=== PATIENT | male | born 1930 | race Caucasian/White ===

== ENCOUNTER 2017-12-15 13:48 | Inpatient (IN) | payer MEDICARE ==
[~2017-12-15] VITALS: Ht 177.8 cm; Wt 93.6 kg
[2017-12-15] MEDS ORDERED: SODIUM CHLORIDE 0.9% 1000ML 1,000 ML IV ONE (16:30)
--- NOTE | 2017-12-15 17:10 | Diagnostic Imaging Report ---
Exam: Head CT without contrast History: Difficulty walking,? CVA. Comparison studies: None Technique: Axial images were obtained from the skull base to the vertex. Coronal and sagittal images reconstructed from the axial data. Intravenous contrast: None Findings: Scalp: Incidental small right scalp lipoma. No additional abnormalities. Bones: No fractures, blastic or lytic lesions. Brain sulci: Mildly prominent. Ventricles: Moderately dilated, disproportionate to sulcal size. Communicating hydrocephalus could have this appearance. Consider normal pressure hydrocephalus (NPH) in the appropriate clinical setting. No hydrocephalus. Extra-axial spaces: No masses, no fluid collection. Parenchyma: No mass, acute hemorrhage or acute or chronic cortical vascular insults. Confluent hypodensity in the supratentorial white matter is nonspecific but most compatible with chronic small vessel ischemic changes. Periventricular hypodensity could reflect transependymal flow of CSF related to hydrocephalus or chronic small vessel ischemic changes. There is a chronic lacunar insult in the left subinsular region as well as small chronic lacunar infarct in the right putamen. Sellar/suprasellar region: No abnormalities. Craniocervical junction: Patent foramen magnum. No Chiari one malformation. Incidental findings: Atherosclerotic calcifications in the carotid siphons and intradural vertebral arteries. Left globe prosthesis and implant in place. Right intraocular lens replacement related to previous cataract surgery. IMPRESSION: 1. No mass, acute hemorrhage or acute cortical vascular insults. 2. Nonspecific communicating hydrocephalus. Consider NPH in the appropriate clinical setting. 3. Generalized volume loss. 4. 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 Signed by: Dr. Lester Dow M.D. on 12/15/2017 5:07 PM
[2017-12-15 17:37] LABS: BASOPHILS # (AUTO) 0.1 (0.0-0.1); BASOPHILS % 0.3 % (0.0-1.0); HEMATOCRIT 38.9 % (38.2-49.6); HEMOGLOBIN 13.1 g/dL (14.0-18.0); LYMPHOCYTES # (AUTO) 0.2 (1.0-3.2); LYMPHOCYTES % 1.3 % (18.0-39.1); MEAN CORPUSCULAR HEMOGLOBIN 29.2 pg (28-32); MEAN CORPUSCULAR HGB CONC 33.7 g/dL (31-35); MEAN CORPUSCULAR VOLUME 86.8 fL (81-99); MONOCYTES # (AUTO) 0.8 (0.2-0.8); MONOCYTES % 4.2 % (4.4-11.3); NEUTROPHILS # (AUTO) 16.6 (2.1-6.9); NEUTROPHILS % 93.6 % (38.7-80.0); PLATELET COUNT 139 x10e3/uL (140-360); RED BLOOD COUNT 4.48 x10e6/uL (4.3-5.7); RED CELL DISTRIBUTION WIDTH 14.8 % (11.7-14.4)
[2017-12-15 17:40] LABS: CLARITY,URINE SL CLOUDY (CLEAR); COLOR,URINE YELLOW (YELLOW); KETONES,URINE 1+ (NEGATIVE); LEUKOCYTE ESTERASE ,URINE NEGATIVE (NEGATIVE); NITRITE,URINE NEGATIVE (NEGATIVE); PROTEIN,URINE DIPSTICK 1+ (NEGATIVE); URINE UROBILINOGEN 0.2 mg/dL (0.2 - 1)
[2017-12-15 17:41] LABS: BILIRUBIN,URINE 1+ (NEGATIVE)
[2017-12-15 17:51] LABS: ALBUMIN 3.8 g/dL (3.5-5.0); ALBUMIN/GLOBULIN RATIO 1.3 (0.8-2.0); ANION GAP 14.5 mmol/L (8-16); CALCIUM 9.2 mg/dL (8.4-10.2); CREATININE, SERUM 1.33 mg/dL (0.72-1.25); MAGNESIUM 1.9 MG/DL (1.3-2.1); PHOSPHORUS 2.6 MG/DL (2.3-4.7); POTASSIUM 3.5 mmol/L (3.5-5.1)
[2017-12-15 17:54] LABS: AMORPHOUS SEDIMENT,URINE FEW (FEW); BACTERIA,URINE FEW /HPF; EPITHELIAL CELLS,URINE MODERATE /LPF
[2017-12-15 18:11] LABS: THYROID STIMULATING HORMONE 0.728 uIU/mL (0.350-4.940)
[2017-12-15] MEDS ORDERED: CEFTRIAXONE SOD 1 GM VIAL IV ONE (18:30)
[2017-12-15] MEDS ORDERED: SODIUM CHLORIDE FLUSH 10 ML SYR INJ PRN (18:45)
[2017-12-15] MEDS ORDERED: PIPER-TAZ 3.375 GM 50 ML IV ONE (18:45)
[2017-12-15] MEDS ORDERED: ONDANSETRON HCL INJ 2 MG/ML VIAL IV PRN (18:45)
--- OUTSIDE RECORDS SUMMARY | 2017-12-15 18:50 | XMS REPORT ---
Author Author [facility] Address Unknown Phone Unavailable Care Team Providers Care Assistant Broker Name Role Phone MAAME TELLO Unavailable Unavailable Problems This patient has no known problems. Allergies, Adverse Reactions, Alerts This patient has no known allergies or adverse reactions. Medications This patient has no known medications. Results Test Description Test Time Test Comments Text Results Atomic Results Result Comments CT BRAIN WO [place] [address] Patient Name: REJI PIKE MR #: [id number] : 1930 Age/Sex: 87/M Req #: [id number] Adm Physician: Ordered by: MAAME TELLO MD Report #: [id number] Location: ER Room/Bed: Procedure: [id number] CT/CT BRAIN WO Exam Date: 12/15/17 Exam Time: 1640 REPORT STATUS: Signed Exam: Head CT without contrast History: Difficulty walking,? CVA. Comparison studies: None Technique: Axial images were obtained from the skull base to the vertex. Coronal and sagittal images reconstructed from the axial data. Intravenous contrast: None Findings: Scalp: Incidental small right scalp lipoma. No additional abnormalities. Bones: No fractures, blastic or lytic lesions. Brain sulci : Mildly prominent. Ventricles: Moderately dilated, disproportionate to sulcal size. Communicating hydrocephalus could have this appearance. Consider normal pressure hydrocephalus (NPH) in the appropriate clinical setting. No hydrocephalus. Extra-axial spaces: No masses, no fluid collection. Parenchyma: No mass, acute hemorrhage or acute or chronic cortical vascular insults. Confluent hypodensity in the supratentorial white matter is nonspecific but most compatible with chronic small vessel ischemic changes. Periventricular hypodensity could reflect transependymal flow of CSF related to hydrocephalus or chronic small vessel ischemic changes. There is a chronic lacunar insult in the left subinsular region as well as small chronic lacunar infarct in the right putamen. Sellar/suprasellar region: No abnormalities. Craniocervical junction: Patent foramen magnum. No Chiari one malformation. Incidental findings: Atherosclerotic calcifications in the carotid siphons and intradural vertebral arteries. Left globe prosthesis and implant in place. Right intraocular lens replacement related to previous cataract surgery. IMPRESSION: 1. No mass, acute hemorrhage or acute cortical vascular insults. 2. Nonspecific communicating hydrocephalus. Consider NPH in the appropriate clinical setting. 3. Generalized volume loss. 4. 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 Signed by: Dr. Hussain Jaquez M.D. on 12/15/2017 5:07 PM Dictated By: HUSSAIN JAQUEZ MD 06 Transcribed By: THUY on 12/15/171706 COPY TO: MAAME TELLO MD
[2017-12-15] MEDS: SODIUM CHLORIDE 0.9% 1000ML 1,000 ML IV SCH (19:12)
--- NOTE | 2017-12-15 19:30 | Diagnostic Imaging Report ---
Examination: Single AP view of the chest. COMPARISON: None. INDICATION: Back pain, fever IMPRESSION: 1. Lines and Tubes: None 2. Lungs are well inflated. Minimal right basilar atelectatic changes. No consolidation or effusion. 3. Enlarged cardiac silhouette. Pulmonary vasculature is normal. 4. No acute bony abnormalities. Signed by: Dr. Jacobo Dunham M.D. on 12/15/2017 7:27 PM
[2017-12-15] MEDS ORDERED: METOPROLOL TART25 MG PO (19:59)
[2017-12-15] MEDS ORDERED: ASPIR 8181 MG PO (19:59)
[2017-12-15] MEDS ORDERED: BRILINTA90 MG PO (19:59)
[2017-12-15 20:00] VITALS: BP 144/63
[2017-12-15 20:15] VITALS: BP 144/63
[2017-12-15 23:29] LABS: CHOL/HDL RATIO 3.7 (3.9-4.7)
[2017-12-16] VITALS (7 sets, daily range): BP systolic 130–188; BP diastolic 62–86
--- NOTE | 2017-12-16 00:15 | History and Physical ---
PRIMARY CARE PHYSICIAN: Dr. Wisdom CHIEF COMPLAINT: Inability to stand. HISTORY OF PRESENT ILLNESS: Ctdtxk-sisn-bboy-old man with a history of coronary artery disease with coronary artery bypass grafting, now developing severe fatigue and difficulty with standing. Patient states "I lost it." He states "I could not stand." Patient felt further weak and shaky. His son notes that when he entered the room, the patient was covered in multiple blankets with the heat on. Patient was shaking at that time, therefore brought him to the hospital. He further noted that the patient had 2 episodes of diarrhea. Patient denies any fever, chills, or sweats. Denies any other symptoms. PAST MEDICAL HISTORY: Hypertension, coronary artery disease status post coronary artery bypass grafting in 1999, status post coronary stents, peripheral vascular disease. PAST SURGICAL HISTORY: Coronary artery bypass grafting, back surgery, coronary artery stenting. ALLERGIES: PER ELECTRONIC MEDICAL RECORD. FAMILY/SOCIAL HISTORY: Patient is . He has 5 children. No alcohol or illicits. He quit cigarettes 3 months ago. MEDICATIONS: Per electronic medical record. REVIEW OF SYSTEMS: Denies any dizziness or chest pain. PHYSICAL EXAMINATION: VITAL SIGNS: Reviewed. GENERAL APPEARANCE: Tired-appearing man resting in bed. HEENT: Anicteric. Pupils respond to light. No oral lesions. CARDIOVASCULAR: Normal S1 and S2. LUNGS: Moderate breath sounds. ABDOMEN: Soft, nontender, nondistended. EXTREMITIES: No edema or calf tenderness. NEUROLOGICAL: Alert and oriented x3. Moves all extremities. SKIN: Dry. PSYCHIATRIC: Flat affect. LABS: Reviewed. MEDICATIONS: Reviewed. ASSESSMENT AND PLAN: Boxkcw-ruze-brcr-old man. 1. Gait disturbance. Will get physical therapy on board. 2. Marked leukocytosis. Urinalysis is negative. Chest x-ray is clear. Patient is started on antibiotics empirically. Will follow up cultures. 3. Computerized tomography scan of the brain is negative. There is a nonspecific communicating hydrocephalus. 4. Nonspecific communicating hydrocephalus. Will reassess patient function tomorrow and determine whether magnetic resonance imaging is needed to rule out normal-pressure hydrocephalus. 5. Acute kidney injury. Rehydrate and reassess. 6. Overweight state. Body mass index 28.2. Obtain lipid panel. 7. Hypertension. Continue beta ángel. 8. Coronary artery disease with history of coronary artery bypass grafting and stents. Continue and aspirin. 9. Prophylaxis. Will use Pepcid and Lovenox. 10. Disposition. Physical therapy consultation. Follow up laboratories in morning. Job#: [id number]
[2017-12-16 06:30] LABS: BASOPHILS % 0.2 % (0.0-1.0); HEMOGLOBIN 10.8 g/dL (14.0-18.0); LYMPHOCYTES # (AUTO) 0.4 (1.0-3.2); LYMPHOCYTES % 4.7 % (18.0-39.1); MEAN CORPUSCULAR HEMOGLOBIN 29.1 pg (28-32); MEAN CORPUSCULAR HGB CONC 33.8 g/dL (31-35); MEAN CORPUSCULAR VOLUME 86.3 fL (81-99); MONOCYTES # (AUTO) 0.5 (0.2-0.8); MONOCYTES % 5.9 % (4.4-11.3); NEUTROPHILS # (AUTO) 7.8 (2.1-6.9); NEUTROPHILS % 88.7 % (38.7-80.0); PLATELET COUNT 106 x10e3/uL (140-360); RED BLOOD COUNT 3.71 x10e6/uL (4.3-5.7); RED CELL DISTRIBUTION WIDTH 14.6 % (11.7-14.4)
[2017-12-16 07:06] LABS: ALBUMIN/GLOBULIN RATIO 1.3 (0.8-2.0); ANION GAP 11.7 mmol/L (8-16); CALCIUM 8.3 mg/dL (8.4-10.2); CREATININE, SERUM 1.21 mg/dL (0.72-1.25); POTASSIUM 3.7 mmol/L (3.5-5.1)
[2017-12-16] MEDS: FAMOTIDINE 20 MG TAB PO SCH ×2 (07:45→17:35)
[2017-12-16 08:14] LABS: LYMPHOCYTES % (MANUAL) 5 % (19-48); MONOCYTES % (MANUAL) 3 % (3.4-9.0); NEUTROPHILS % (MANUAL) 92 % (40-74)
[2017-12-16 08:15] LABS: ANISOCYTOSIS SLIGHT; HYPOCHROMASIA SLIGHT; PLATELET ESTIMATE SLIGHTLY DECREASED; PLATELET MORPHOLOGY COMMENT FEW LARGE; RBC MORPHOLOGY COMMENT NORMAL
[2017-12-16] MEDS: ASPIRIN 81 MG CHEW TAB PO SCH (08:30)
[2017-12-16] MEDS: METOPROLOL TARTRATE 25 MG TAB PO SCH ×2 (08:30→17:35)
[2017-12-16] MEDS ORDERED: TICAGRELOR 90 MG TABLET PO SCH (09:00)
[2017-12-16] MEDS: SODIUM CHLORIDE 0.9% 1000ML 1,000 ML IV SCH ×2 (10:36→22:15)
[2017-12-16] MEDS: PIPER-TAZ 3.375 GM 100 ML IV SCH ×2 (14:30→21:42)
[2017-12-16] MEDS: ENOXAPARIN SOD INJ 40 MG/0.4 ML SYR SC SCH (17:35)
--- NOTE | 2017-12-16 18:06 | Diagnostic Imaging Report ---
PROCEDURE:X-RAY LUMBAR SPINE, TWO VIEWS COMPARISON:None. INDICATIONS:CHRONIC BACK PAIN. PAIN WHEN HAVING A BOWEL MOVEMENT FINDINGS: There are 5 lumbar-type vertebral bodies. Generalized osteopenia. The vertebral bodies are well-aligned without evidence of significant spondylolisthesis. There are no acute, displaced fractures, lytic or blastic lesions. Vertebral body heights are well-maintained. Mild degenerative disc changes with small osteophytes, predominantly at L3-L4, L4-L5. Mild degenerative changes in bilateral sacroiliac joints. Extensive atherosclerotic calcification of the abdominal aorta. CONCLUSION: 1. No acute abnormalities. 2. Mild degenerative disc changes, predominately, L3-L4, and L4-L5. Jacobo Dunham M.D. Dictated by: Jacobo Dunham M.D. on 12/16/2017 at 18:07 Electronically approved by: Jacobo Dunham M.D. on 12/16/2017 at 18:07
[2017-12-16] MEDS: METOPROLOL TARTRATE 50 MG TAB PO SCH (21:41)
[2017-12-17] VITALS (10 sets, daily range): BP systolic 155–199; BP diastolic 67–86
--- NOTE | 2017-12-17 02:33 | Consultation ---
DATE OF CONSULTATION: December 16, 2017 NEUROLOGY CONSULT NOTE HISTORY OF PRESENT ILLNESS: Mr. Green is an 87-year-old right hand dominant man with past medical history significant for hypertension and coronary artery disease, status post CABG, who presented to [facility] on December 15, 2017 with subjective fevers, generalized weakness, generalized shaking, and 2 episodes of diarrhea. The patient presented to the emergency center at [facility] on the evening of December 15, 2017 with the above symptoms. While in the emergency center, the patient underwent a CT of the brain without contrast, which demonstrated ventriculomegaly, out of proportion to cerebral atrophy. Mr. Green was admitted to the hospital for further evaluation and treatment. Mr. Green reports difficulty walking, which he attributes to his neuropathy. The patient reports numbness and burning pain over the feet and forelegs. He reports feeling unsteady when walking. He has experienced multiple falls over the past several months, all without injury. Of note, Mr. Green was never formally diagnosed with peripheral neuropathy. However, it has been recommended to him by multiple physicians to see a neurologist for evaluation for peripheral neuropathy. The patient does not endorse urinary incontinence. He does report urinary frequency and urgency, but only at night. The patient does not report urinary symptoms during the day. Mr. Green does not report memory loss or confusion. Neither family members nor friends have expressed concerns regarding memory loss or forgetfulness. The patient's son, who arrived at the bedside towards the end of the encounter, is in agreement with Mr. Green's description of his symptoms. REVIEW OF SYSTEMS: Diarrhea, numbness and burning pain over the feet and forelegs, impairment of balance and gait, low back pain, urinary frequency and urgency, rectal pain. Otherwise, the 12-point review of systems is negative. PAST MEDICAL HISTORY: Hypertension, coronary artery disease. PAST SURGICAL HISTORY: Two-vessel CABG and back surgery. PAST HOSPITALIZATIONS: Surgeries and procedures as listed. FAMILY HISTORY: Mr. Green denies any significant family medical history. SOCIAL HISTORY: The patient is . Mr. Green is retired. He does not report current or prior tobacco, alcohol, or recreational drug use. HOME MEDICATIONS: 1. Aspirin 81 mg by mouth daily. 2. Brilinta 120 mg by mouth daily. 3. Metoprolol 25 mg by mouth twice daily. ALLERGIES: NO KNOWN DRUG ALLERGIES. NO KNOWN FOOD ALLERGIES. NO KNOWN ALLERGIES TO LATEX. NO KNOWN ALLERGIES TO IODINE OR OTHER CONTRAST MATERIALS. PHYSICAL EXAMINATION: VITAL SIGNS: Height 70 inches, weight 212 pounds, BMI 30.4 kg/sq m. Blood pressure 184/83 mmHg, pulse 76 beats per minute, respiratory rate 18 breaths per minute, oxygen saturation 94% on room air. GENERAL: The patient is awake and alert, does not appear distressed. Overweight. HEENT: Normocephalic, atraumatic. The right pupil is equal, round, and reactive to light. The left pupil is surgical. Moist mucous membranes. NECK: Supple. No appreciable thyromegaly. No appreciable carotid bruits. CARDIOVASCULAR: S1, S2, regular rate and rhythm. No murmurs, rubs, or gallops. RESPIRATORY: Expiratory wheezes throughout. EXTREMITIES: The skin is warm and dry. No clubbing, cyanosis, or edema. The posterior tibial and dorsalis pedis pulses are 2+ and symmetric. SKIN: Multiple ecchymoses over the forearms. NEUROLOGIC EXAMINATION: MEMORY/ATTENTION: The patient is awake and alert, oriented to person, place, time, and situation. CRANIAL NERVES: Cranial nerve I - not tested. Cranial nerves II, III, IV, and - The right pupil is equal and round, reacts briskly to light (from 4 mm to 2 mm). The left pupil is surgical. Extraocular movements are intact, no nystagmus. Cranial nerve V - Sensation to light touch and pinprick is intact in the bilateral V1 through V3 distributions. Strength of the temporalis and masseter muscles is within normal limits. Cranial nerve VII - The face is symmetric, as are all facial movements. Strength is within normal limits. Cranial nerve VIII - Hearing is diminished to finger rub bilaterally. Cranial nerve IX, X - The soft palate elevates equally and symmetrically. Cranial nerve XI - Normal strength of the bilateral sternocleidomastoid and trapezius muscles. Cranial nerve XII - The tongue protrudes midline and moves symmetrically from side to side. STRENGTH: Bulk is normal, and strength is 5/5 in the bilateral deltoids, biceps, triceps, wrist flexors and extensors, finger flexors and extensors, intrinsic hand muscles, hip flexors, knee flexors and extensors, ankle dorsiflexion and plantarflexion, and intrinsic foot muscles. Tone is normal. DTRs: Deep tendon reflexes are 2+ and symmetric at the triceps, biceps, brachioradialis, and patellas. Deep tendon reflexes are absent and symmetric at the Achilles. The plantar responses are flexor bilaterally. Absent clonus. SENSATION: Sensation is intact to light touch and pinprick in both arms and both legs. CEREBELLAR: Fuzuyp-gkhe-pjbyom and heel-rivera maneuvers are intact without dysmetria or other impairment. Rapid alternating movements are intact. GAIT: Deferred. SPEECH: Spontaneous speech is normal without appreciable dysarthria or aphasia. Repetition is intact. INVOLUNTARY MOVEMENTS: None. PRONATOR DRIFT: None. LABORATORY DATA: Sodium 137, potassium 3.7, chloride 106, carbon dioxide 23, anion gap 11.7. BUN 24, creatinine 1.21, estimated GFR 57, BUN to creatinine ratio 20, glucose 106, calcium 8.3. Total bilirubin 0.9, AST 27, ALT 12, alkaline phosphatase 83, total protein 5.4, albumin 3.0, globulin 2.4, albumin to globulin ratio 1.3. Lactic acid 14.8. TSH 0.728. Total cholesterol 165, triglycerides 108, LDL 98, HDL 45. The CBC with differential and platelets reveals a white blood cell count of 8.78 with 88.7% neutrophils, 4.7% lymphocytes, 5.9% monocytes, 0.0% eosinophils, and 0.2% basophils. The hemoglobin and hematocrit are 10.8 and 32.0, respectively. The platelet count is 106,000. A urinalysis performed on December 15, 2017 is slightly cloudy with 1+ protein, 1+ ketones, and 1+ bilirubin. DIAGNOSTIC STUDIES: 1. CT of the brain without contrast, December 15, 2017: On my review, there is no evidence of recent or remote large territorial ischemia, hemorrhage, mass, or mass affect. There is mild enlargement of the sulci. There is marked enlargement of the ventricles, out of proportion with the mild sulcal enlargement. 2. Chest x-ray, December 15, 2017: Lungs are well inflated. Minimal right basilar atelectasis. No consolidation or effusion. Enlarged cardiac silhouette. Pulmonary vasculature is normal. No bony abnormalities. 3. Lumbar spine x-ray, December 16, 2017: No acute abnormalities. Mild degenerative disk changes, especially at the L3-L4 and L4-L5 levels. ASSESSMENT AND PLAN: Mr. Green is an 87-year-old right hand dominant man admitted to [facility] with burning pain and numbness over both feet and forelegs, impairment of gait and balance, and urinary frequency and urgency. His neurological examination is nonfocal. The patient's laboratory data and diagnostic studies have been reviewed and are documented above. As noted above, the CT of the brain without contrast demonstrated marked enlargement of the ventricles, out of proportion to the mild sulcal enlargement. Mr. Green appears to have a communicating hydrocephalus. The neuroradiologist who reviewed the CT of the brain without contrast included normal-pressure hydrocephalus under the differential diagnosis in the correct clinical setting. Mr. Green does endorse impairment of gait and balance. However, he also reports numbness and burning pain over the feet and forelegs. These symptoms are more compatible with a diagnosis of peripheral neuropathy rather than normal-pressure hydrocephalus. Mr. Green does not report urinary incontinence or confusion/memory loss, which are 2 of the hallmarks of normal-pressure hydrocephalus. RECOMMENDATIONS: As follows: 1. An MRI of the brain without contrast has been ordered to further evaluate for hydrocephalus. Unfortunately, it is unlikely the findings on the MRI of the brain without contrast will be of much assistance in differentiating between normal-pressure hydrocephalus and some other form of hydrocephalus. I would consider performing a high volume lumbar puncture with interventional radiology (20 to 30 mL of cerebrospinal fluid removed) with ambulation pre and post lumbar puncture. If there is marked improvement in the patient's gait status post lumbar puncture, this would confirm a diagnosis of normal-pressure hydrocephalus. 2. As stated above, the patient's impairment of gait and balance in combination with numbness and burning pain over the feet and forelegs is suggestive of peripheral neuropathy. Blood work will be drawn to evaluate for reversible causes of peripheral neuropathy. 3. Defer treatment of the remaining medical comorbidities to the primary and other services. Thank you for this consult. I will continue to follow the patient while he remains in the hospital. Time spent 70 minutes. Job#: [id number] DR CALVO
[2017-12-17] MEDS: SODIUM CHLORIDE 0.9% 1000ML 1,000 ML IV SCH ×4 (02:36→20:50)
[2017-12-17] MEDS: PIPER-TAZ 3.375 GM 100 ML IV SCH ×3 (05:36→20:51)
[2017-12-17] MEDS ORDERED: linzess (05:43)
[2017-12-17] MEDS ORDERED: CRESTOR10 MG (05:43)
[2017-12-17] MEDS ORDERED: DIOVAN80 MG PO (05:43)
[2017-12-17] MEDS ORDERED: TAMSULOSIN HCL0.4 MG (05:43)
[2017-12-17 07:14] LABS: ANION GAP 11.6 mmol/L (8-16); CALCIUM 8.1 mg/dL (8.4-10.2); CREATININE, SERUM 1.21 mg/dL (0.72-1.25); POTASSIUM 3.6 mmol/L (3.5-5.1)
--- NOTE | 2017-12-17 07:36 | Diagnostic Imaging Report ---
Exam: Brain MRI without IV contrast History: Bacteremia, hydrocephalus Comparison studies: Head CT 12/15/2017 Technique: Sagittal T2; axial DWI, FLAIR, MPGR, T1, Coronal T2 FLAIR. Intravenous contrast: None Findings: Scalp: Incidental small lipoma in the right frontal scalp. No other abnormalities. Bone marrow: Normal in signal intensity. Extra-axial spaces: No mass, no fluid collection. Brain sulci: Mildly prominent. Ventricles: The supratentorial ventricles are mildly dilated disproportionate to sulcal size. The fourth ventricle is only mildly dilated. The mid and distal sylvian aqueduct appear widely patent on the previous head CT. Cannot adequately evaluate the proximal aqueduct on this exam or on the previous CT. Moreover, the possibility of proximal aqueduct stenosis remains a possibility, though less likely in the context of transependymal flow CSF which is seen more in the acute setting. Extra-axial spaces: Mildly prominent extra-axial space of CSF under the Parenchyma: No mass, hemorrhage or acute ischemia. A few scattered and confluent T2 FLAIR hyperintense signal changes in the supratentorial white matter are nonspecific most compatible with chronic small vessel ischemic changes. T2 FLAIR hyperintense signal changes along the margins of the ventricles suggest transependymal flow CSF in the context of hydrocephalus. There are chronic lacunar infarcts in the left frontal rodriguez radiata which extend to the left subinsular white matter and small chronic lacunar infarct in the right putamen. Suprasellar region: Mostly CSF filled sella, a nonspecific finding. Craniocervical junction: Patent foramen magnum. No Chiari malformation . Vessels: Normal flow-voids in the arteries and sinuses. Incidental findings: Left globe implant and prosthesis in place. Right intraocular lens replacement. IMPRESSION: 1. Moderately dilated supratentorial ventricles with mildly dilated fourth ventricle. Findings may reflect nonspecific communicating hydrocephalus. Hydrocephalus related to meningitis in the context of infection is a consideration. Consider NPH only in the appropriate clinical setting. Hydrocephalus related to proximal aqueductus stenosis is a less likely consideration in the context of transependymal flow of CSF which suggests a more acute process. Consider lumbar puncture to further evaluate. 2. Moderate generalized volume loss. 3. Moderate chronic microvascular ischemic changes with chronic left frontal-insular and right putaminal lacunar infarcts. 4. No changes from the previous head CT of 12/15/2017. Signed by: Dr. Lester Dow M.D. on 12/17/2017 7:32 AM
[2017-12-17] MEDS: FAMOTIDINE 20 MG TAB PO SCH ×2 (08:10→16:45)
[2017-12-17] MEDS: METOPROLOL TARTRATE 50 MG TAB PO SCH ×2 (08:10→20:51)
[2017-12-17] MEDS: ASPIRIN 81 MG CHEW TAB PO SCH (08:10)
[2017-12-17] MEDS: METOPROLOL TARTRATE 25 MG TAB PO SCH ×2 (08:10→16:50)
[2017-12-17] MEDS: [UNRECOGNIZED DRUG - OTHER] PO SCH (09:00)
--- NOTE | 2017-12-17 09:04 | Progress Note ---
DATE: December 16, 2017 TIME: 8:40 a.m. OVERNIGHT: Renal function improving. REVIEW OF SYSTEMS: Denies any dizziness or chest pain. PHYSICAL EXAMINATION VITAL SIGNS: Reviewed. GENERAL: A tired-appearing man resting in bed. HEENT: Anicteric. CARDIOVASCULAR: Normal S1 and S2. LUNGS: Moderate breath sounds. ABDOMEN: Soft, nontender and nondistended. EXTREMITIES: No edema. SKIN: Dry. PSYCHIATRIC: Normal affect. LABS: Reviewed. MEDICATIONS: Reviewed. ASSESSMENT: An 87-year-old man with: 1. Gait disturbance. 2. Leukocytosis. 3. Nonspecific communicating hydrocephalus. 4. Acute kidney injury. 5. Overweight state. 6. Hypertension. 7. Coronary artery disease with history of coronary artery bypass grafting and stents. PLAN 1. Physical therapy. 2. Follow up cultures. 3. MRI imaging needed. 4. Neurology consultation. 5. Discussed with neurology. May need lumbar puncture to assess for any improvement in gait. 6. Continue cardiac medications. 7. Renal function improving. 8. Leukocytosis improving. 9. Continue IV Zosyn. 10. Discussed case with daughter by telephone. Job#: [id number] MA
--- NOTE | 2017-12-17 09:05 | Progress Note ---
DATE: December 17, 2017 TIME: 8:36 a.m. OVERNIGHT: No events. REVIEW OF SYSTEMS: Denies any dizziness. VITAL SIGNS: Reviewed. PHYSICAL EXAMINATION GENERAL: Tired-appearing man resting in bed. HEENT: Anicteric. CARDIOVASCULAR: Normal S1 and S2. LUNGS: Moderate breath sounds. ABDOMEN: Soft, nontender, nondistended. EXTREMITIES: No edema. SKIN: Dry. PSYCHIATRIC: Normal affect. LABS: Reviewed. MEDICATIONS: Reviewed. ASSESSMENT AND PLAN: An 87-year-old man. 1. Gait disturbance. 2. Mild leukocytosis. 3. Nonspecific communicating hydrocephalus. 4. Acute kidney injury. 5. Overweight state. 6. Hypertension. 7. Coronary artery disease with history of coronary artery bypass grafting and stents. PLAN 1. Follow up MRI. 2. Leukocytosis is improving with antibiotic. Continue IV Zosyn. 3. Normocytic anemia. Obtain hemoglobin and follow up counts. 4. Renal function is showing improvement. 5. Possible large-volume lumbar puncture to evaluate gait changes. 6. All cultures remain negative. 7. I have discussed the case with the son at bedside. I discussed the case with Dr. Quinones. Job#: [id number]
[2017-12-17] MEDS ORDERED: ONDANSETRON HCL 4 MG ORAL DISINTEGRATING TAB PO PRN (11:15)
[2017-12-17] MEDS: ENOXAPARIN SOD INJ 40 MG/0.4 ML SYR SC SCH (16:50)
[2017-12-18] VITALS (7 sets, daily range): BP systolic 110–189; BP diastolic 55–88
[2017-12-18] MEDS ORDERED: LABETALOL HCL 5 MG/ML 20ML VIAL IV PRN (00:15)
[2017-12-18] MEDS: SODIUM CHLORIDE 0.9% 1000ML 1,000 ML IV SCH ×2 (02:36→11:52)
[2017-12-18] MEDS: PIPER-TAZ 3.375 GM 100 ML IV SCH ×3 (06:15→21:34)
[2017-12-18] MEDS: LABETALOL HCL 200 MG TAB PO SCH ×3 (06:47→17:53)
[2017-12-18] MEDS: NIFEDIPINE CR 30 MG TAB PO SCH ×3 (06:47→20:10)
[2017-12-18 06:53] LABS: BASOPHILS % 0.4 % (0.0-1.0); EOSINOPHILS % 0.4 % (0.0-6.0); HEMATOCRIT 30.5 % (38.2-49.6); HEMOGLOBIN 10.3 g/dL (14.0-18.0); LYMPHOCYTES # (AUTO) 0.7 (1.0-3.2); LYMPHOCYTES % 10.9 % (18.0-39.1); MEAN CORPUSCULAR HEMOGLOBIN 29.3 pg (28-32); MEAN CORPUSCULAR HGB CONC 33.8 g/dL (31-35); MEAN CORPUSCULAR VOLUME 86.6 fL (81-99); MONOCYTES # (AUTO) 0.7 (0.2-0.8); MONOCYTES % 10.6 % (4.4-11.3); NEUTROPHILS # (AUTO) 5.2 (2.1-6.9); PLATELET COUNT 106 x10e3/uL (140-360); RED BLOOD COUNT 3.52 x10e6/uL (4.3-5.7); RED CELL DISTRIBUTION WIDTH 14.7 % (11.7-14.4)
[2017-12-18 07:20] LABS: ANION GAP 10.4 mmol/L (8-16); CALCIUM 8.1 mg/dL (8.4-10.2); CREATININE, SERUM 1.15 mg/dL (0.72-1.25); POTASSIUM 3.4 mmol/L (3.5-5.1)
[2017-12-18] MEDS ORDERED: VANCOMYCIN 1GM/NS 250 ML 250 ML IV ONE ×2 (07:45→22:00)
[2017-12-18 08:34] LABS: INR 1.21; PROTHROMBIN TIME 14.4 seconds (11.9-14.5)
[2017-12-18] MEDS: ASPIRIN 81 MG CHEW TAB PO SCH (08:48)
[2017-12-18] MEDS: FAMOTIDINE 20 MG TAB PO SCH ×2 (08:48→17:53)
[2017-12-18] MEDS: METOPROLOL TARTRATE 50 MG TAB PO SCH ×2 (08:48→20:10)
[2017-12-18] MEDS: [UNRECOGNIZED DRUG - OTHER] PO SCH (09:00)
[2017-12-18] MEDS ORDERED: ACETAMINOPHEN 325 MG TAB PO PRN (09:15)
[2017-12-18] MEDS: ENOXAPARIN SOD INJ 40 MG/0.4 ML SYR SC SCH (17:53)
[2017-12-18] MEDS: SIMVASTATIN 40 MG TAB PO SCH (20:16)
[2017-12-18] MEDS: TAMSULOSIN HCL 0.4 MG CAP PO SCH (20:16)
[2017-12-19] VITALS (7 sets, daily range): BP systolic 112–131; BP diastolic 58–64
[2017-12-19] MEDS: PIPER-TAZ 3.375 GM 100 ML IV SCH ×3 (05:30→22:13)
[2017-12-19] MEDS: FAMOTIDINE 20 MG TAB PO SCH ×2 (07:30→16:30)
[2017-12-19] MEDS: LABETALOL HCL 200 MG TAB PO SCH ×2 (09:00→17:00)
[2017-12-19] MEDS: [UNRECOGNIZED DRUG - OTHER] PO SCH ×2 (09:00→17:00)
[2017-12-19] MEDS: ASPIRIN 81 MG CHEW TAB PO SCH (09:00)
[2017-12-19] MEDS: NIFEDIPINE CR 30 MG TAB PO SCH ×2 (09:00→22:14)
[2017-12-19 09:44] LABS: BASOPHILS % 0.4 % (0.0-1.0); EOSINOPHILS # (AUTO) 0.1 (0.0-0.4); EOSINOPHILS % 2.4 % (0.0-6.0); HEMATOCRIT 29.1 % (38.2-49.6); HEMOGLOBIN 9.7 g/dL (14.0-18.0); LYMPHOCYTES # (AUTO) 0.7 (1.0-3.2); LYMPHOCYTES % 14.8 % (18.0-39.1); MEAN CORPUSCULAR HGB CONC 33.3 g/dL (31-35); MEAN CORPUSCULAR VOLUME 87.1 fL (81-99); MONOCYTES # (AUTO) 0.4 (0.2-0.8); NEUTROPHILS # (AUTO) 3.3 (2.1-6.9); NEUTROPHILS % 72.7 % (38.7-80.0); PLATELET COUNT 92 x10e3/uL (140-360); RED BLOOD COUNT 3.34 x10e6/uL (4.3-5.7); RED CELL DISTRIBUTION WIDTH 14.6 % (11.7-14.4)
[2017-12-19] MEDS: METOPROLOL TARTRATE 50 MG TAB PO SCH ×2 (09:52→22:15)
[2017-12-19] MEDS: SODIUM CHLORIDE 0.9% 1000ML 1,000 ML IV SCH ×3 (10:36→22:32)
[2017-12-19] MEDS: ENOXAPARIN SOD INJ 40 MG/0.4 ML SYR SC SCH (17:00)
[2017-12-19] MEDS: SIMVASTATIN 40 MG TAB PO SCH (22:13)
[2017-12-19] MEDS: TAMSULOSIN HCL 0.4 MG CAP PO SCH (22:15)
[2017-12-20] VITALS (8 sets, daily range): BP systolic 135–168; BP diastolic 62–93
[2017-12-20] MEDS: SODIUM CHLORIDE 0.9% 1000ML 1,000 ML IV SCH ×4 (00:30→17:32)
[2017-12-20] MEDS: PIPER-TAZ 3.375 GM 100 ML IV SCH (06:42)
[2017-12-20] MEDS: FAMOTIDINE 20 MG TAB PO SCH ×2 (07:30→16:30)
[2017-12-20] MEDS: LABETALOL HCL 200 MG TAB PO SCH ×2 (09:00→17:00)
[2017-12-20] MEDS: METOPROLOL TARTRATE 50 MG TAB PO SCH ×2 (09:00→21:23)
[2017-12-20] MEDS: NIFEDIPINE CR 30 MG TAB PO SCH ×2 (09:00→21:23)
--- NOTE | 2017-12-20 16:13 | Progress Note ---
DATE: December 20, 2017 TIME: 1515 OVERNIGHT: No acute events. REVIEW OF SYSTEMS: The patient denies headache, chest pain, nausea, vomiting, diarrhea, shortness of breath, dizziness, or dyspnea on exertion. The patient continues with complaint of bilateral lower extremity edema and numbness. PHYSICAL EXAMINATION VITAL SIGNS: The patient with an oral temperature this a.m. of 96.7, pulse 70 and regular, respirations 18, blood pressure 166/76 with a pulse oximetry of 94% on room air. GENERAL: This is a tired-appearing man sitting up supine in the chair next to the bed. HEENT: No sinus tenderness. Oral mucosa is moist and intact. Left eye prosthesis noted. CARDIOVASCULAR: S1 and S2 appreciated without click, murmurs or rubs. LUNGS: Bilateral breath sounds are clear to auscultation with fair excursion and symmetrical expansion. ABDOMEN: Soft, nontender and not distended. EXTREMITIES: Scant smooth hairless lower extremities, cool to touch with nonpitting trace edema bilaterally. Ecchymotic changes noted. SKIN: Dry. PSYCHIATRIC: Normal affect. LABS: Potassium significant previously for hypokalemia. WBCs are 4.54, H and H is 9.7 and 29.1 respectively on December 19, 2017. MEDICATIONS: Profile includes: 1. Procardia XL 30 mg p.o. q.12 h. 2. Labetalol 200 mg p.o. b.i.d. 3. Metoprolol 75 mg p.o. q.12 h. 4. Pepcid 20 mg b.i.d. a.c. meals by mouth. 5. Flomax 0.4 mg at night. 6. Zocor 40 mg p.o. at bedtime. 7. P.r.n. Tylenol 650 mg. 8. P.r.n. labetalol 5 mg q.2 h. p.r.n. systolic blood pressure greater than 150. 9. NS at 125 an hour. 10. P.r.n. Zofran 4 mg q.4 h. as needed for nausea and vomiting. ASSESSMENT AND PLAN: This is an 87-year-old man with: 1. Gait disturbance: Large volume lumbar puncture pending in a.m. per RN. 2. Mild leukocytosis: Improved with antibiotic. Continue medications as above and monitor. 3. Nonspecific communicating hydrocephalus: Dr. 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 4. Acute kidney injury: Renal function improved as of December 18, 2017, as GFR was 60 at that time. 5. Overweight state: Caloric restriction as outpatient. 6. Hypertension: Blood pressure range in the last 48 hours has been between systolic values of 119 to 166. P.r.n. labetalol not used in 2 days. Current regimen adequate pending procedure tomorrow. Continue and adjust following tomorrow's procedure. 7. Coronary artery disease with a history of coronary artery bypass graft and stents. 8. Prophylaxis: Pepcid. Anticoagulation is held this day per nursing staff to include Lovenox and aspirin. 9. Disposition: Large volume lumbar puncture pending in a.m. for the aforementioned gait changes. Follow up values and recommendations. Continue regimen. DICTATED BY ANA CRISTINA CLIFTON NP Job#: [id number] [place]
[2017-12-20] MEDS: TAMSULOSIN HCL 0.4 MG CAP PO SCH (21:22)
[2017-12-20] MEDS: SIMVASTATIN 40 MG TAB PO SCH (21:23)
[2017-12-21] VITALS (7 sets, daily range): BP systolic 137–165; BP diastolic 61–79
[2017-12-21] MEDS: SODIUM CHLORIDE 0.9% 1000ML 1,000 ML IV SCH ×3 (03:10→18:23)
[2017-12-21 06:52] LABS: INR 1.21; PROTHROMBIN TIME 14.4 seconds (11.9-14.5)
--- NOTE | 2017-12-21 07:33 | Progress Note ---
DATE: December 18, 2017 TIME: 7:10 a.m. OVERNIGHT: No events. REVIEW OF SYSTEMS: Denies any dizziness. PHYSICAL EXAMINATION VITAL SIGNS: Reviewed. GENERAL: A tired-appearing man resting in bed. HEENT: Anicteric. Pupils respond to light. No oral lesions. CARDIOVASCULAR: Normal S1 and S2. LUNGS: Moderate breath sounds. ABDOMEN: Soft, nontender and nondistended. EXTREMITIES: No edema. SKIN: Dry. PSYCHIATRIC: Flat affect. LABS: Reviewed. MEDICATIONS: Reviewed. ASSESSMENT: An 87-year-old man with: 1. Gait disturbance. 2. Leukocytosis. 3. Fever of unknown origin. 4. Nonspecific communicating hydrocephalus. 5. Acute kidney injury. 6. Overweight state. 7. Hypertension. 8. Coronary artery disease with history of coronary artery bypass graft and stents. PLAN 1. Continue antibiotics. 2. Large volume lumbar puncture is pending. 3. Continue to follow up renal function. 4. Continue physical therapy. 5. Continue IV antibiotics. Job#: [id number] [place]
--- NOTE | 2017-12-21 07:35 | Progress Note ---
DATE: December 19, 2017 TIME: 7:10 a.m. OVERNIGHT: No events. REVIEW OF SYSTEMS: Denies any dizziness. VITAL SIGNS: Reviewed. PHYSICAL EXAMINATION GENERAL: Tired-appearing man resting in bed. HEENT: Anicteric. Pupils respond to light. No oral lesions. CARDIOVASCULAR: Normal S1 and S2. LUNGS: Moderate breath sounds. ABDOMEN: Soft, nontender. EXTREMITIES: No edema. SKIN: Dry. PSYCHIATRIC: Flat affect. LABS: Reviewed. MEDICATIONS: Reviewed. ASSESSMENT AND PLAN: An 87-year-old man. 1. Gait disturbance. 2. Mild leukocytosis. 3. Nonspecific communicating hydrocephalus. 4. Fever of unknown origin. 5. Overweight state. 6. Hypertension. 7. Coronary artery disease with history of bypass. PLAN 1. Continue antibiotics. 2. Large-volume lumbar puncture pending. 3. Leukocytosis, resolved. 4. Follow up renal function. 5. Continue current care and blood pressure control. Job#: [id number]
--- NOTE | 2017-12-21 07:35 | Progress Note ---
DATE: December 21, 2017 TIME: 6:59 a.m. OVERNIGHT: No events. The patient refusing IV Zosyn due to symptoms of diarrhea related. REVIEW OF SYSTEMS: Denies any dizziness. PHYSICAL EXAMINATION VITAL SIGNS: Reviewed. GENERAL: A tired-appearing man resting in bed. HEENT: Anicteric. Pupils respond to light. No oral lesions. CARDIOVASCULAR: Normal S1 and S2. LUNGS: Moderate breath sounds. ABDOMEN: Soft, nontender and nondistended. EXTREMITIES: No edema. SKIN: Dry. PSYCHIATRIC: Flat affect. LABS: Reviewed. MEDICATIONS: Reviewed. ASSESSMENT: An 87-year-old man with: 1. Gait disturbance. 2. Nonspecific communicating hydrocephalus. 3. Fever of unknown origin. 4. Leukocytosis. 5. Acute kidney injury. 6. Hypertension. 7. Coronary artery disease with history of stent and coronary artery bypass graft. PLAN 1. Refusing IV antibiotics, but has remained afebrile. No leukocytosis. 2. Large volume lumbar puncture is pending. 3. Continue physical therapy. 4. All cultures remain negative. 5. Check potassium level in the setting of hypokalemia. Job#: [id number] [place]
[2017-12-21] MEDS: FAMOTIDINE 20 MG TAB PO SCH ×2 (08:00→16:30)
[2017-12-21] MEDS: NIFEDIPINE CR 30 MG TAB PO SCH ×2 (09:00→22:05)
[2017-12-21] MEDS: LABETALOL HCL 200 MG TAB PO SCH ×2 (09:00→16:30)
[2017-12-21] MEDS: METOPROLOL TARTRATE 50 MG TAB PO SCH ×2 (09:00→21:00)
[2017-12-21] MEDS ORDERED: LIDOCAINE HCL 1% LOCAL INJ 20 ML VIAL ONE (11:57)
--- NOTE | 2017-12-21 15:17 | Diagnostic Imaging Report ---
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 CONCLUSION: [employer] radiographs taken for lumbar puncture, without acute lumbar spine abnormalities. Vascular calcifications. Patient refused to undergo the lumbar puncture procedure. Dictated by: Jaime Jacinto M.D. on 12/21/2017 at 15:18 Electronically approved by: Jaime Jacinto M.D. on 12/21/2017 at 15:18
[2017-12-21] MEDS ORDERED: POTASSIUM CHLORIDE 20 MEQ TAB CR PO ONE (15:30)
[2017-12-21] MEDS: TAMSULOSIN HCL 0.4 MG CAP PO SCH (22:05)
[2017-12-21] MEDS: SIMVASTATIN 40 MG TAB PO SCH (22:05)
[2017-12-21] MEDS ORDERED: FUROSEMIDE INJ 10 MG/ML 2 ML VIAL IV ONE (22:45)
[2017-12-21] MEDS ORDERED: TERBUTALINE SULFATE 1 MG/ML VIAL SC PRN (23:30)
[2017-12-22] VITALS (8 sets, daily range): BP systolic 151–166; BP diastolic 67–81
[2017-12-22] MEDS: SODIUM CHLORIDE 0.9% 1000ML 1,000 ML IV SCH (02:36)
[2017-12-22] MEDS: HYDRALAZINE HCL 10 MG TAB PO SCH ×3 (06:09→22:21)
[2017-12-22] MEDS ORDERED: FAMOTIDINE20 MG PO (07:08)
[2017-12-22 08:23] LABS: ANION GAP 11.1 mmol/L (8-16); BLOOD UREA NITROGEN 15 mg/dL (7-26); BUN/CREATININE RATIO 14 (6-25); CALCIUM 8.5 mg/dL (8.4-10.2); CARBON DIOXIDE 23 mmol/L (22-29); CHLORIDE 110 mmol/L (98-107); CREATININE, SERUM 1.06 mg/dL (0.72-1.25); EST GLOMERULAR FILTRATION RATE > 60 ML/MIN (60-); GLUCOSE 110 mg/dL (74-118); POTASSIUM 3.1 mmol/L (3.5-5.1); SODIUM 141 mmol/L (136-145)
[2017-12-22] MEDS: [UNRECOGNIZED DRUG - OTHER] PO SCH ×2 (08:30→17:00)
[2017-12-22] MEDS ORDERED: FUROSEMIDE INJ 10 MG/ML 2 ML VIAL IV ONE (08:30)
--- NOTE | 2017-12-22 08:56 | Progress Note ---
DATE: December 22, 2017 TIME: 8 a.m. OVERNIGHT: Patient refused LP. Currently mildly short of breath. REVIEW OF SYSTEMS: Denies any dizziness. VITAL SIGNS: Reviewed. PHYSICAL EXAMINATION GENERAL: A tired-appearing man resting in bed. HEENT: Anicteric. CARDIOVASCULAR: Normal S1 and S2. LUNGS: Reduced breath sounds and fine crackles. ABDOMEN: Soft, nontender and nondistended. EXTREMITIES: No edema. SKIN: Dry. PSYCHIATRIC: Flat affect. LABS: Reviewed. MEDICATIONS: Reviewed. ASSESSMENT: An 87-year-old man. 1. Gait disturbance. 2. Nonspecific communicating hydrocephalus. 3. Fever of unknown origin. 4. Leukocytosis. 5. Acute kidney injury. 6. Hypertension. 7. Coronary artery disease with history of stent and coronary artery bypass grafting. 8. Fluid overload. PLAN 1. Obtain chest x-ray. 2. Give a dose of Lasix. 3. IV fluids have been turned off, maintain off. 4. Follow up with repeat potassium level today. 5. All cultures remain negative. 6. Will obtain LP as an outpatient. 7. Await clinical improvement of respiratory status. Job#: [id number]
[2017-12-22] MEDS: FAMOTIDINE 20 MG TAB PO SCH ×2 (09:00→16:30)
[2017-12-22] MEDS: FUROSEMIDE INJ 10 MG/ML 4 ML VIAL IV SCH (09:00)
[2017-12-22] MEDS ORDERED: ASPIRIN 81 MG CHEW TAB PO SCH ×2 (09:00)
[2017-12-22] MEDS ORDERED: POTASSIUM CHLORIDE 20 MEQ TAB CR PO ONE (09:30)
--- NOTE | 2017-12-22 10:52 | Consultation ---
DATE OF CONSULTATION: December 22, 2017 CARDIOLOGY CONSULTATION REASON FOR CONSULTATION: Bradycardia. HPI: This is a pleasant 87-year-old male that is morbidly obese that presented with generalized weakness. According to the patient and the son at the bedside, he was having chills, weakness, unable to walk that was getting worse that he decided to come into the emergency room for evaluation. In the ER, they did blood work and found out he had elevated white blood count. They also did an MRI that showed noncommunicating hydrocephalus, and he was admitted for further workup. Yesterday, he was undergoing a lumbar puncture. He was unable to lay flat, and the test was canceled. He was noted to have bradycardia. Heart rate in the 30s and 40s at nighttime and in the 60s and 70s in the daytime. Cardiology was consulted. He has a history of CAD, CABG, PAD, PVD and multiple peripheral stents in the past. He denied any chest pain, any dizziness, any headache, or nausea. He was getting normal saline at 125 mL per hour. He was found to in fluid overload also. EKG was showing sinus bradycardia with some PACs, but he is asymptomatic. PAST MEDICAL HISTORY: Chronic back pain, gait disturbance, obesity, CAD with CABG, hypertension, PVD, PAD, CKD with kidney stents, and peripheral stents also. PAST SURGICAL HISTORY: Open heart surgery, kidney stents, bilateral peripheral stents, and back surgeries. FAMILY HISTORY: Positive for CAD. SOCIAL HISTORY: He quit smoking and he lives at home with the family. MEDICATIONS: See med list. ALLERGIES: HE IS ALLERGIC TO PIPERACILLIN AND TAZOBACTAM. REVIEW OF SYSTEMS: Negative except those mentioned above. PHYSICAL EXAMINATION VITAL SIGNS: Temperature 97, heart rate 60, blood pressure 159/74, respirations 20, oxygen saturation 96% on room air. GENERAL: He is obese, awake, alert, and oriented times 3. HEENT: Mucous membrane moist. NECK: Supple. LUNGS: Bilateral decreased breath sounds. CARDIOVASCULAR: S1 and S2 present. ABDOMEN: Soft. NEUROLOGICAL: He is awake, alert and oriented times 3. EXTREMITIES: Bilateral lower extremities with trace edema. LABS: Sodium 141, potassium 3, chloride 110, CO2 24, BUN 18, creatinine 1.15, glucose 113. White blood cells 4.54, hemoglobin 9.7, hematocrit 29.1, and platelets 92,000. INR 1.21, PT 14.4. IMPRESSION 1. Bradycardia. 2. Coronary artery disease with coronary artery bypass graft. 3. Noncommunicating hydrocephalus. 4. History of peripheral arterial disease and peripheral vascular disease. 5. History of chronic back pain. ASSESSMENT AND PLAN: Will go ahead and stop his beta ángel. Will get an echocardiogram to assess the LV and the valve function. Will stop the IV fluids. Get bilateral carotid Doppler to rule out any occlusion. Will continue low-dose diuretics. Potassium has been replaced. Further cardiac workup pending clinical course. Thank you for this consultation. DICTATED BY NANDO STONE NP Job#: [id number] [place]
[2017-12-22] MEDS: ASPIRIN 81 MG CHEW TAB PO SCH (11:00)
--- NOTE | 2017-12-22 12:10 | Diagnostic Imaging Report ---
PROCEDURE: X-RAY CHEST, TWO VIEWS COMPARISON: Patients [facility], DX, CHEST SINGLE (PORTABLE), 12/15/2017, 20:03. INDICATIONS: SHORTNESS OF BREATH FINDINGS: LUNGS: Mild pulmonary vascular congestion. Bibasilar opacities likely secondary to atelectasis. PLEURA: Small left pleural effusion. HEART \T\ MEDIASTINUM: Sternotomy wire sutures. Mild cardiac enlargement. BONES \T\ SOFT TISSUES: No acute findings. Degenerative changes of the spine. CONCLUSION: 1. Mild pulmonary vascular congestion. 2. Small left pleural effusion. 3. Bibasilar air space opacities likely secondary to atelectasis. Dixon Carney D.O. Dictated by: Dixon Carney D.O. on 12/22/2017 at 12:11 Electronically approved by: Dixon Carney D.O. on 12/22/2017 at 12:11
[2017-12-22] MEDS ORDERED: TICAGRELOR 60 MG PO SCH (17:00)
[2017-12-22] MEDS ORDERED: ENOXAPARIN SOD INJ 40 MG/0.4 ML SYR SC SCH (17:00)
[2017-12-22] MEDS: SIMVASTATIN 40 MG TAB PO SCH (22:21)
[2017-12-22] MEDS: TAMSULOSIN HCL 0.4 MG CAP PO SCH (22:21)
[2017-12-23] VITALS (8 sets, daily range): BP systolic 153–180; BP diastolic 71–95
[2017-12-23] MEDS: HYDRALAZINE HCL 10 MG TAB PO SCH ×2 (06:14→15:40)
--- NOTE | 2017-12-23 07:51 | Discharge Summary ---
PRINCIPAL DIAGNOSES 1. Gait disturbance. 2. Nonspecific communicating hydrocephalus. 3. Fever of unknown origin. 4. Leukocytosis. 5. Acute kidney injury. 6. Hypertension. 7. Fluid overload. 8. Hypokalemia. SECONDARY DIAGNOSIS: Coronary artery disease with history of stent and coronary artery bypass grafting. CHIEF COMPLAINT: Inability to stand. HISTORY: An 87-year-old man with difficulty standing. Refer to the H and P for further details. HOSPITAL COURSE: The patient was found to have nonspecific communicating hydrocephalus. Neurology was consulted. Plan for large volume lumbar puncture to assess for normal pressure hydrocephalus. However, the patient refused lumbar puncture. He had fever of unknown origin and treated with antibiotics and IV Zosyn. Fever resolved. Leukocytosis resolved. All cultures remained negative. He had acute kidney injury, which has improved with IV fluids. Coronary artery disease with a history of stent and coronary artery bypass grafting. He received medication regimen. He received physical therapy during the hospitalization. He had significant hypokalemia, which was replaced daily. He is currently appropriate for discharge to follow. DISCHARGE MEDICATIONS: Per electronic medical record. FOLLOWUP 1. Primary care doctor in [address] Quinones of neurology in 2 weeks. CONDITION ON DISCHARGE: Stable and improving. DISCHARGE LOCATION: Home with physical therapy. MALINI JACKSON MD Job#: [id number] [place]
[2017-12-23 08:24] LABS: MAGNESIUM 1.6 MG/DL (1.3-2.1); POTASSIUM 3.4 mmol/L (3.5-5.1)
[2017-12-23] MEDS ORDERED: POTASSIUM CHLORIDE 10 MEQ TABCR PO STA (08:41)
[2017-12-23] MEDS: FAMOTIDINE 20 MG TAB PO SCH (09:01)
[2017-12-23] MEDS: FUROSEMIDE INJ 10 MG/ML 4 ML VIAL IV SCH (09:01)
[2017-12-23] MEDS: [UNRECOGNIZED DRUG - OTHER] PO SCH (09:01)
[2017-12-23] MEDS: ASPIRIN 81 MG CHEW TAB PO SCH (09:01)
== END 2017-12-23 17:20 | disposition home or self-care (01) | DRG 872 ==
LOC: ER 13:48 → ERHOLD 18:47 → MED/SURG3 19:48
PROVIDERS: ADMIT Internal Medicine; ATTEND Internal Medicine
DX: A41.9 Sepsis, unspecified organism (principal); N17.9 Acute kidney failure, unspecified; G91.0 Communicating hydrocephalus; R00.1 Bradycardia, unspecified; K52.1 Toxic gastroenteritis and colitis; R26.9 Unspecified abnormalities of gait and mobility; D72.829 Elevated white blood cell count, unspecified; E66.3 Overweight; Z68.28 Body mass index [BMI] 28.0-28.9, adult; I25.10 Atherosclerotic heart disease of native coronary artery without angina pectoris; Z98.84 Bariatric surgery status; Z95.1 Presence of aortocoronary bypass graft; G62.9 Polyneuropathy, unspecified; E87.6 Hypokalemia; I10 Essential (primary) hypertension; R35.0 Frequency of micturition; R39.15 Urgency of urination; D64.9 Anemia, unspecified
CPT/HCPCS: 36415; 70450; 70551; 71045; 71046; 72100; 80048; 80053; 80061; 81001; 82607; 82746; 83036; 83605; 83735; 83880; 84100; 84132; 84252; 84425; 84443; 85025; 85610; 85651; 86039; 86140; 86235; 86431; 87040; 87071; 87086; 87205; 93306; 93880; 96361; 99284; J0696; J1650; J1940; J2001; J2543; J3370; J7030